=== PATIENT | female | born 1935 | race Caucasian/White ===

== ENCOUNTER 2022-10-29 11:59 | Inpatient (IN) | payer MEDICARE, BC ==
[~2022-10-29] VITALS: Ht 154.9 cm; Wt 83.0 kg
[2022-10-29 12:48] LABS: BASO % 0.1 % (0.0-2.0); EOS # 0.2 K/mm3 (0.0-0.7); GRAN # 7.5 K/mm3 (1.4-6.5); GRAN % 71.6 % (42.2-75.2); LYMPH # 1.8 K/mm3 (1.2-3.4); LYMPH % 17.4 % (20.0-51.0); MEAN CELL VOLUME 97 fl (80.0-100.0); MEAN CORPUSCULAR HGB CONC 33 g/dl (33.0-37.0); MEAN PLATELET VOLUME 9.3 fl (7.4-10.4); MONO # 0.9 K/mm3 (0.1-0.6); MONO % 8.5 % (1.7-9.3); PLATELET COUNT 204 K/mm3 (130-400); RED BLOOD COUNT 2.79 M/mm3 (4.10-5.30); REDCELL DISTRIBUTION WIDTH-CV 14.4 % (11.5-14.5)
[2022-10-29 13:04] LABS: ALANINE AMINOTRANSFERASE 17 U/L (0-55); ALBUMIN 2.3 gm/dL (3.4-4.8); ALKALINE PHOSPHATASE 138 U/L (40-150); ANION GAP 13 mmol/L (7-16); AST,SGOT 19 U/L (5-34); BILIRUBIN,TOTAL 0.3 mg/dL (0.2-1.2); BLOOD UREA NITROGEN 103 mg/dL (10-20); CALCIUM 9.3 mg/dL (8.4-10.2); CARBON DIOXIDE 15 mmol/L (23-31); CHLORIDE 108 mmol/L (98-107); GLUCOSE 210 mg/dL (70-99); POTASSIUM 4.4 mmol/L (3.5-4.5); SODIUM 136 mmol/L (136-145); TOTAL PROTEIN 5.8 gm/dL (6.2-8.1)
[2022-10-29 13:06] LABS: INR 1.1 (0.8-3.0); PROTHROMBIN TIME 12.3 SECONDS (9.7-12.8)
[2022-10-29 13:09] LABS: HEMATOCRIT 27.1 % (37.0-47.0); HEMOGLOBIN 8.9 g/dl (12.5-16.0); MEAN CORPUSCULAR HEMOGLOBIN 32 pg (27-31)
[2022-10-29 13:10] LABS: TROPONIN-I < 0.010 ng/mL (0.00-0.033)
[2022-10-29] MEDS ORDERED: TOPROL XL 50MG50 MG PO (13:38)
[2022-10-29] MEDS ORDERED: ZYLOPRIM 300MG300 MG PO (13:39)
[2022-10-29] MEDS ORDERED: PRILOSEC 20MG20 MG PO (13:39)
[2022-10-29] MEDS ORDERED: NEURONTIN300 MG/CAP (13:39)
[2022-10-29] MEDS ORDERED: COZAAR100 MG PO (13:39)
[2022-10-29] MEDS ORDERED: ASPIRIN E.C. 8181 MG PO (13:40)
[2022-10-29] MEDS ORDERED: NORVASC 5MG5 MG/TAB PO (13:40)
[2022-10-29] MEDS ORDERED: VITAMIN D 50,1.25 MG PO (13:41)
[2022-10-29] MEDS ORDERED: ALPHA LIPOIC A200 M2 PO (13:41)
[2022-10-29] MEDS ORDERED: TYLENOL 500MG500 MG PO (13:43)
[2022-10-29] MEDS ORDERED: FARXIGA10 PO (13:46)
[2022-10-29] MEDS ORDERED: LUTEIN20 M1 PO (13:46)
[2022-10-29] MEDS ORDERED: B-12 500 MCG PO (13:46)
[2022-10-29 17:43] VITALS: BP 117/39; PULSE 52; TEMP 97.6
--- NOTE | 2022-10-29 18:16 | NUR ---
Patient arrived to the unit by wheelchair, alert and oriented x 4, VSS, rates her pain in her hips, with movement rating 9/10 specially in the left side. Assessment intake completed.
[2022-10-29] MEDS ORDERED: VITAMIN C500 MG PO (18:29)
--- NOTE | 2022-10-29 19:00 | NUR ---
Patient eating dinner, fluids started per orders. Report given to night RN.
[2022-10-29 19:27] VITALS: BP 138/48; PULSE 65; TEMP 98.1; TEMP 981
[2022-10-29 21:00] VITALS: BP_SYST 138
--- NOTE | 2022-10-29 22:16 | NUR ---
SHIFT REPORT FROM MICHAEL PENDLETON. PATIENT IN BED ON ROOM ENTRY. ALERT AND ORIENTED. DAUGHTER AT BEDSIDE. C/O MODERATE PAIN 7/10 TO BACK AND HIPS AND STATES SHE HAS SORENESS IN HER CHEST. TYLENOL GIVEN. PATIENT REFUSED NORCO AT THIS TIME. HS MEDS PER EMAR. ABRASION TO HEAD CDI AND CLOSED WITH SKIN GLUE. IVF TO L AC IV. TELE APPLIED. DENIES ADDITIONAL NEEDS. CALL LIGHT IN REACH.
[2022-10-29 23:15] LABS: MUCOUS Present (NOT PRESENT); SQUAMOUS EPITHELIAL 0-2 /hpf (0-10); URINE BACTERIA None Seen /hpf (NONE SEEN); URINE WBC >50 /hpf (0-2)
[2022-10-29 23:18] LABS: URINE APPEARANCE Clear (CLEAR/HAZY); URINE BLOOD TRACE-INTACT (NEGATIVE); URINE COLOR Yellow (YELLOW); URINE GLUCOSE TRACE (NEGATIVE); URINE KETONE Negative (NEGATIVE); URINE NITRATE Negative (NEGATIVE); URINE PROTEIN(semi-quant) 3+ (NEGATIVE); URINE UROBILINOGEN 0.2 E.U/dL (0.2-1.0)
[2022-10-29 23:20] LABS: COLLECTION METHOD CLEAN CATCH
[2022-10-30] VITALS (14 sets, daily range): BP systolic 116–163; BP diastolic 38–60; PULSE 63–109; TEMP 97.5–98.5
[2022-10-30 07:31] LABS: BASO % 0.2 % (0.0-2.0); EOS # 0.3 K/mm3 (0.0-0.7); EOS % 3.3 % (0.0-4.0); GRAN # 5.9 K/mm3 (1.4-6.5); GRAN % 70.1 % (42.2-75.2); LYMPH # 1.4 K/mm3 (1.2-3.4); LYMPH % 16.5 % (20.0-51.0); MEAN CELL VOLUME 98 fl (80.0-100.0); MEAN CORPUSCULAR HGB CONC 33 g/dl (33.0-37.0); MEAN PLATELET VOLUME 9.5 fl (7.4-10.4); MONO # 0.8 K/mm3 (0.1-0.6); MONO % 9.4 % (1.7-9.3); PLATELET COUNT 204 K/mm3 (130-400); REDCELL DISTRIBUTION WIDTH-CV 14.2 % (11.5-14.5)
[2022-10-30 07:33] LABS: HEMATOCRIT 23.5 % (37.0-47.0); HEMOGLOBIN 7.7 g/dl (12.5-16.0); MEAN CORPUSCULAR HEMOGLOBIN 32 pg (27-31)
[2022-10-30 08:09] LABS: CALCIUM 8.9 mg/dL (8.4-10.2); CREATININE, serum 2.99 mg/dL (0.57-1.11); MAGNESIUM 1.7 mg/dL (1.6-2.6); PHOSPHOROUS 5.4 mg/dL (2.3-4.7); POTASSIUM 3.9 mmol/L (3.5-4.5)
[2022-10-30 08:14] LABS: TROPONIN-I 0.014 ng/mL (0.00-0.033)
--- NOTE | 2022-10-30 08:35 | NUR ---
HOSPITALIST TEAM ROUNDING, SEE ORDERS. DAUGHTER AT BEDSIDE.
--- NOTE | 2022-10-30 09:48 | NUR ---
Initial visit; Patient and her daughter, Bhavya thanked Stable Attendant for looking in on her and offering God's blessings and letting her know of the availability of Spiritual Care at our hospital. Patient was receptive to [facility] keeping her in her prayers.
--- NOTE | 2022-10-30 10:05 | NUR ---
TEAM AT BEDSIDE TO PLACE LOOP RECORDER, SEE ORDERS, AND WILL OBTAIN CONSENT. FAMILY AT BEDSIDE.
--- NOTE | 2022-10-30 12:20 | NUR ---
NURSING STAFF ASSISTING PATIENT TO BATHROOM. LITHOGRAPHIC PRINTING MACHINIST CALLED AND REPORTS A-FIB WITH HR OF 120-140'S. LITHOGRAPHIC PRINTING MACHINIST TO PRINT STRIPS. CALLED FOR STAT EKG. CARDIOLOGY ALREADY ON CASE.
--- NOTE | 2022-10-30 14:20 | NUR ---
supervisor whipped topping met with PAtient and family at bedside to conduct Care Managment Assessment and discuss discharge planning. Patient lives in [place], [place] by herself and is established with Dr. Simental for PCP. Patient has [facility] and [employer] for insurance. Patient states that her daughter, Linnette P: [phone] is her best familial point of contact. Patient denies the use of O2 and endorses the use of a 4WW prior to admission. Patient reports independency with ADL/IADLs prior to admission. Patient reports to have advanced directives being faxed from PCP office. Treatment team reccommends SNF on discharge. Patient and family report to want referrals to [facility] and [facility]. Discharge Plan: SNF/Swing Bed
--- NOTE | 2022-10-30 20:11 | NUR ---
pt resting in bed, was up recently to the restroom. Pt reports that her chest hurts a little when she takes a deep breath, but will then go away. Pt reports that she has been dealing with this all day. Tele called, heart rate 50s, pt resting comfortably in bed, reports feeling fine. Pt does have family in the room at this time. No needs, will continue to monitor
[2022-10-31] VITALS (10 sets, daily range): BP systolic 134–177; BP diastolic 39–56; PULSE 79–133; TEMP 98–99.2
--- NOTE | 2022-10-31 03:00 | NUR ---
Pt continues to get up every hour at least to void. Pt is weak and is not steady. She has pain to both hips and her back and is somewhat stiff when getting up. PRN pain medication given at this time
[2022-10-31 07:04] LABS: BASO % 0.2 % (0.0-2.0); EOS # 0.2 K/mm3 (0.0-0.7); EOS % 2.5 % (0.0-4.0); GRAN # 6.2 K/mm3 (1.4-6.5); LYMPH # 1.3 K/mm3 (1.2-3.4); LYMPH % 15.5 % (20.0-51.0); MEAN CELL VOLUME 96 fl (80.0-100.0); MEAN CORPUSCULAR HGB CONC 33 g/dl (33.0-37.0); MEAN PLATELET VOLUME 9.6 fl (7.4-10.4); MONO # 0.9 K/mm3 (0.1-0.6); MONO % 10.3 % (1.7-9.3); PLATELET COUNT 213 K/mm3 (130-400); REDCELL DISTRIBUTION WIDTH-CV 14.2 % (11.5-14.5); RETIC # 0.05 M/mm3 (0.02-0.16); RETIC % 1.8 % (0.5-3.52)
[2022-10-31 07:09] LABS: HEMATOCRIT 24.1 % (37.0-47.0); MEAN CORPUSCULAR HEMOGLOBIN 32 pg (27-31)
[2022-10-31 07:26] LABS: ALBUMIN 1.9 gm/dL (3.4-4.8); CALCIUM 9.2 mg/dL (8.4-10.2); CREATININE, serum 2.68 mg/dL (0.57-1.11); MAGNESIUM 1.7 mg/dL (1.6-2.6); PHOSPHOROUS 4.6 mg/dL (2.3-4.7)
[2022-10-31 07:29] LABS: IRON,SERUM < 5 ug/dL (50-175)
--- NOTE | 2022-10-31 07:33 | NUR ---
Bedside report received from the night nurse, KEERTHI Erickson.
--- NOTE | 2022-10-31 10:35 | NUR ---
Patient laying in bed alert and oriented. Loop recorder dressing dry and intact. Noted drainage from the IV site at left A/C. Amiodorane gtt infusing at 17.8. IV site edematous. Amiodorane gtt put on standby to start new IV site. Patient reports of generalized pain and requests for tylenol . Tylenol administered for pain level 7/10. Patient denies of shortness of air, dizziness or lightheadedness. See process intervention for notes.
--- NOTE | 2022-10-31 20:00 | NUR ---
PATIENT IS A&O, NOTED MILD OCCATIONAL FORGETFULNESS. NOTED IRREGULAR HR AT 118 ON TELE. AMIO GTT INFUSING VIA PUMP INTO LEFT FORARM IV, SEE MAR. ALL OTHER VSS. C/O ACHES IN BILATERAL HIPS & LOW BACK. GAVE PRN NORCO WITH HS MEDS PER PATIENT & FAMILY REQUEST. PATIENT'S GRAND-DAUGHTER AT BEDSIDE AND CLEARED TO STAY THE NIGHT. HEAD TO TOE ASSESSMENT COMPLETE. HS BS WAS 214, SSI GIVEN. PATIENT ASSISTED TO BATHROOM AND THEN POSITIONED TO COMFORT UP IN BED. NO OTHER NEEDS AT THIS TIME. CALL LIGHT IN REACH. BED ALARM ON.
[2022-11-01] VITALS (11 sets, daily range): BP systolic 134–164; BP diastolic 52–80; PULSE 102–123; TEMP 97.6–98.4
--- NOTE | 2022-11-01 07:43 | NUR ---
Received shift report from the night nurseMary RN.
[2022-11-01 07:46] LABS: CALCIUM 9.5 mg/dL (8.4-10.2); CREATININE, serum 2.36 mg/dL (0.57-1.11); MAGNESIUM 1.6 mg/dL (1.6-2.6)
[2022-11-01 07:56] LABS: BASO % 0.4 % (0.0-2.0); EOS # 0.2 K/mm3 (0.0-0.7); EOS % 2.3 % (0.0-4.0); GRAN # 7.5 K/mm3 (1.4-6.5); LYMPH % 10.3 % (20.0-51.0); MEAN CELL VOLUME 97 fl (80.0-100.0); MEAN CORPUSCULAR HGB CONC 33 g/dl (33.0-37.0); MEAN PLATELET VOLUME 9.5 fl (7.4-10.4); MONO # 0.9 K/mm3 (0.1-0.6); MONO % 9.6 % (1.7-9.3); PLATELET COUNT 253 K/mm3 (130-400); REDCELL DISTRIBUTION WIDTH-CV 14.1 % (11.5-14.5)
[2022-11-01 07:59] LABS: HEMATOCRIT 26.1 % (37.0-47.0); HEMOGLOBIN 8.5 g/dl (12.5-16.0); MEAN CORPUSCULAR HEMOGLOBIN 31 pg (27-31)
--- NOTE | 2022-11-01 10:21 | NUR ---
Patient sitting up in a recliner, states that she slept well last night. Loop recorder on chest intact. Tele monitor in place. Patient denies of pain , shortness of breath or dizziness. Left upper arm slightly swollen and will apply warm blanket to the affected area. Family at the bedside. Call helm within reach.
--- NOTE | 2022-11-01 17:54 | NUR ---
IV infiltrated on left upper arm, site red and swollen. INT discontinued, and applied warm blanket to area and elevated arm on a pillow. New IV site started on the right forearm.
--- NOTE | 2022-11-01 22:32 | NUR ---
PT. STRUGGLING WITH THE NEED TO FREQUENTLY URINATE, PT. THOUGHT IT HAD BEEN AN HOUR SINCE SHE LAST WENT, DAUGHTER STATED THAT IT HAD ONLY BEEN 30-45 MIN, PT. C/O PAIN IN HER L) ARM, PT.'S ARM IS RED AND SWOLLEN, SHE HAD TWO PREVIOUS IV'S INFILTRATE IN THAT ARM, ARM IS FIRN AND WARM TO THE TOUCH, PLACED GAUZE AND TAPE OVER THE INSERTION SITE, THE HOLE APPEARED LARGE, THERE IS A WHITE SPOT AT THE CENTER OF THE INSERTION SITE WELL, PT. THOUGHT THAT IT LOOKED LIKE PUS, BUT WHEN I ASSESSED IT, THE SITE WAS DRY, DOES NOT LOOK LIKE PUS TO ME, WILL CONTINUE TO MONITOR TO SEE IF REDNESS OR SWELLING HAS SPREAD.
[2022-11-02] VITALS (17 sets, daily range): BP systolic 80–178; BP diastolic 45–75; PULSE 75–119; TEMP 97.8–98.3
[2022-11-02 06:21] LABS: BASO % 0.2 % (0.0-2.0); EOS # 0.3 K/mm3 (0.0-0.7); EOS % 3.1 % (0.0-4.0); GRAN # 7.3 K/mm3 (1.4-6.5); GRAN % 75.1 % (42.2-75.2); LYMPH # 1.2 K/mm3 (1.2-3.4); LYMPH % 12.5 % (20.0-51.0); MEAN CELL VOLUME 98 fl (80.0-100.0); MEAN CORPUSCULAR HGB CONC 33 g/dl (33.0-37.0); MEAN PLATELET VOLUME 9.3 fl (7.4-10.4); MONO # 0.8 K/mm3 (0.1-0.6); MONO % 8.6 % (1.7-9.3); PLATELET COUNT 269 K/mm3 (130-400); RED BLOOD COUNT 2.79 M/mm3 (4.10-5.30); REDCELL DISTRIBUTION WIDTH-CV 14.1 % (11.5-14.5)
[2022-11-02 06:26] LABS: HEMATOCRIT 27.2 % (37.0-47.0); HEMOGLOBIN 8.9 g/dl (12.5-16.0); MEAN CORPUSCULAR HEMOGLOBIN 32 pg (27-31)
[2022-11-02 06:52] LABS: CREATININE, serum 1.92 mg/dL (0.57-1.11); MAGNESIUM 1.8 mg/dL (1.6-2.6); PHOSPHOROUS 3.4 mg/dL (2.3-4.7); POTASSIUM 4.3 mmol/L (3.5-4.5)
--- NOTE | 2022-11-02 07:43 | NUR ---
Received shift report from the night nurse, KEERTHI Denson.
[2022-11-02 10:40] LABS: CREATININE, serum 1.87 mg/dL (0.57-1.11); POTASSIUM 4.5 mmol/L (3.5-4.5)
[2022-11-02 10:51] LABS: INR 1.2 (0.8-3.0); PROTHROMBIN TIME 13.2 SECONDS (9.7-12.8)
--- NOTE | 2022-11-02 10:52 | NUR ---
Patient resting in bed, alert and oriented . Amio gtts infusing at 7.3ml/hr. Patient has bruise on right leg from previou fall. Patient reports pain at right shoulder but no meds needed at this time. Family at the bedside.
--- NOTE | 2022-11-02 14:11 | NUR ---
Patient off the unit for via bed at 1410 for cardioversion.
--- NOTE | 2022-11-02 14:31 | NUR ---
The PA notified SW that the patient may be able to discharge in the next 24-48 hours. Solange, at [facility], reports that they can clinically consider the patient, but do not have a bed available at this time. If something comes available, they will let us know. Malissa, at [facility], requested updates. The patient's daughter, Bhavya, arrived to the hospital and requested an update. SAUD updated her on the above. Bhavya states that her family is now really wanting [facility], due to the patient not doctoring in [facility]. SW informed her how [facility] does not have a bed available an informed her of the other local options. Bhavya states that she needs to talk to her family about this, but she is open to SW sending a referral to [facility]. SAUD contacted and faxed a referral to Kehinde at [facility]. Awaiting screens. SAUD faxed updates to [facility] and [facility].
--- NOTE | 2022-11-02 15:10 | NUR ---
Patient returned to the unit from cardioversion, Patient in NSR showing on the tele monitor. VSS. Amio gtt discontined per orders and po adminitered. Started patient on heparin gtt.
--- NOTE | 2022-11-02 22:08 | NUR ---
PT. FEELS SOB AND HOT SHE STATED, TRANG THE AIDE TOOK A SET OF VITALS ON THE PT., HER BP IS A LITTLE ELEVATED AT 175 SYSTOLIC, O2% WAS 91 ON RA, TRANG ASSISTED ME IN GETTING THE PATIENT PULLED UP IN BED, AND RAISED THE HEAD OF HER BED WELL, TOOK THE BLANKET OFF AND JUST LEFT HER WITH THE SHEET, WILL GIVE THE PT. A PRN DOSE OF HYDRALAZINE FOR HER BP, LUNG SNDS ARE CLEAR IN ALL ARELLANO, WILL CONTINUE TO MONITOR.
[2022-11-03] VITALS (11 sets, daily range): BP systolic 140–178; BP diastolic 42–55; PULSE 67–76; TEMP 97.5–98.9
--- NOTE | 2022-11-03 00:32 | NUR ---
11/02 2348 HEP. XA CAME BACK AT 0.68, NO RATE CHANGE IS NEEDED AT THIS TIME, WILL REORDER THE XA LEVEL TO BE DRAWN IN 6 HOURS, AND WILL CONTINUE TO MONITOR.
--- NOTE | 2022-11-03 00:33 | NUR ---
0014 GAVE DOSE OF TYLENOL A BIT EARLY, ALONG WITH MELATIONIN AND HYDROCODNE THE PT. IS IN PAIN, AND HAS BEEN HAVING EXTREME DIFFICULTY IN GETTING ANY SLEEP FOR THE LAST FEW DAYS, AM HOPING THAT THE COMBINATION WILL GIVE HERENOUGH RELIEF THAT SHE CAN RELAX AND FINALLY SLEEP.
[2022-11-03 14:05] LABS: ALBUMIN 1.9 gm/dL (3.4-4.8); CALCIUM 9.6 mg/dL (8.4-10.2); CREATININE, serum 1.68 mg/dL (0.57-1.11); MAGNESIUM 1.8 mg/dL (1.6-2.6); PHOSPHOROUS 3.7 mg/dL (2.3-4.7); POTASSIUM 4.4 mmol/L (3.5-4.5)
--- NOTE | 2022-11-03 14:18 | NUR ---
PATIENT ALERT AND ORIENTED X4. VSS. PATIENT HERE FOR AFIB/ERNIE/FALLS. PATIENT DENIES ANY PAIN AT THIS TIME. HEPARIN GTT RUNNING AT 15ML/HOUR IN IV TO RIGHT UPPER ARM. LUE WITH EDEMA/RED/WARM TO TOUCH FROM OLD IV INFILTRATION SITE. RUE WITH EDEMA, RED, WARM TO TOUCH FROM OLD IV INFILTRATION SITE. BOTH EXTREMITIES ELEVATED WITH WARM COMPRESSES APPLIED INTERMITTENTLY. PATIENT VOIDING, ON ROOM AIR, AND NO FURTHER COMPLAINTS. CALL LIGHT IN REACH.
[2022-11-03 15:34] LABS: BASO % 0.4 % (0.0-2.0); EOS # 0.4 K/mm3 (0.0-0.7); EOS % 3.7 % (0.0-4.0); GRAN # 8.3 K/mm3 (1.4-6.5); GRAN % 73.5 % (42.2-75.2); LYMPH # 1.6 K/mm3 (1.2-3.4); LYMPH % 14.1 % (20.0-51.0); MEAN CELL VOLUME 99 fl (80.0-100.0); MEAN CORPUSCULAR HGB CONC 33 g/dl (33.0-37.0); MEAN PLATELET VOLUME 9.5 fl (7.4-10.4); MONO # 0.8 K/mm3 (0.1-0.6); MONO % 7.5 % (1.7-9.3); PLATELET COUNT 311 K/mm3 (130-400); RED BLOOD COUNT 2.55 M/mm3 (4.10-5.30); REDCELL DISTRIBUTION WIDTH-CV 14.3 % (11.5-14.5)
[2022-11-03 15:35] LABS: HEMATOCRIT 25.2 % (37.0-47.0); HEMOGLOBIN 8.2 g/dl (12.5-16.0); MEAN CORPUSCULAR HEMOGLOBIN 32 pg (27-31)
[2022-11-03 15:44] LABS: INR 1.2 (0.8-3.0); PROTHROMBIN TIME 13.5 SECONDS (9.7-12.8)
--- NOTE | 2022-11-03 17:28 | NUR ---
FLORAL DEPARTMENT SPECIALIST ATTEMPTED TO DRAW A TYPE AND SCREEN FOR BLOOD BANK. HOSPITALIST INFORMED. TYPE AND SCREEN RETIMED FOR TOMORROW MORNING.
[2022-11-04 00:27] VITALS: BP_SYST 167
[2022-11-04 04:05] VITALS: BP 148/45; PULSE 69; TEMP 97.4
[2022-11-04 04:42] VITALS: BP_SYST 148
--- NOTE | 2022-11-04 04:49 | NUR ---
11/03 2018 PT. APPEARS EMOTIONALLY DISTRESSED, STATED THAT IT HAD BEEN AN OVERWHELMING DAY, AND THAT THEY GAVE HER IV LASIX, THAT SHE NORMALLY HAS TO GO FREQUENTLY ANYWAY, AND THIS WAS MAKING HER HAVE TO GO EVERY 15 MIN, I ASKED IF SHE WOULD LIKE THAT WE COULD PUT THE COMMODE BY THE SIDE OF HER BED, SO THAT SHE WOULDN'T BECOME EXHAUSTED BY HAVING TO WALK ALL THE WAY INTO THE BATHROOM SO FREQUENTLY UNTIL THE LASIX HAS FINISHED WORKING ITS WAY THROUGH HER SYSTEM, PT. STATED THAT WOULD BE WONDERFUL, PT. ASKED ABOUT HER LEFT ARM AND IF IT WAS LOOKING ANY BETTER, PT.'S ARM IS STILL RED, SWOLLEN, FIRM TO THE TOUCH FROM WHERE TWO SEPARATE IV'S INFILTRATED WHILE INFUSING AN AMIODARONE DRIP, EXPLAINED THAT THERE ARE CERTAIN MEDS THAT REQUIRE AN ANTIDOTE TO BE GIVEN IN SHOTS AROUND THE AREA OF INFILTRATION IN ORDER TO COUNTER THE MEDS EFFECT ON THE TISSUE, BUT THAT THE NURSE WHO HAD BEEN TAKING CARE OF HER AT THE TIME IT HAPPENED WAS UNAWARE OF THAT FACT, THAT THE ANTIDOTE CAN ONLY BE DONE WITHIN A CERTAIN TIME FRAME, AND THAT IT HAS BEEN TOO LONG SINCE IT HAPPENED, A RESULT IT MIGHT TAKE LONGER TO HEAL, PT. STATED UNDERSTANDING, WILL CONTINUE TO MONITOR.
[2022-11-04 07:03] VITALS: BP 170/56; PULSE 74; TEMP 97.8
[2022-11-04] MEDS ORDERED: FERRO-TIME325 MG PO (11:21)
[2022-11-04] MEDS ORDERED: LOVENOX 8080 MG/0.8 SQ (11:22)
[2022-11-04] MEDS ORDERED: COUMADIN 5MG5 MG/TAB PO (11:23)
[2022-11-04] MEDS ORDERED: TYLENOL 325MG325 MG PO (11:23)
[2022-11-04] MEDS ORDERED: SODIUM BICARBO650 MG PO (11:23)
[2022-11-04 11:24] LABS: INR 1.5 (0.8-3.0); PROTHROMBIN TIME 16.8 SECONDS (9.7-12.8)
[2022-11-04] MEDS ORDERED: PACERONE200 MG PO (11:27)
[2022-11-04] MEDS ORDERED: APRESOLINE 10MG10 MG PO (11:27)
[2022-11-04] MEDS ORDERED: TOPROL XL 25MG25 MG PO (11:27)
[2022-11-04] MEDS ORDERED: GLUCAGEN1 MG IM (11:29)
[2022-11-04] MEDS ORDERED: MAG-OX 400400 MG/TAB PO (11:29)
[2022-11-04] MEDS ORDERED: NOVLOG SQ (11:29)
--- NOTE | 2022-11-04 11:34 | NUR ---
*late entry, 11/03* The hospitalist team notified SW that the patient may be able to discharge on Wednesday, 11/04. SW notified and faxed updates to [facility] and [facility]. Solange, at [facility], reports that they may have a bed opening up now. Kehinde, at [facility], reports that they are able to accept the patient. SW met with the patient and her son, Angel, and updated them on the above. The patient and her son are agreeable to going to [facility], if [facility] does not have a bed open up.
--- NOTE | 2022-11-04 11:36 | NUR ---
The clinical team is ready to discharge the patient. SAUD notified Solange at [facility]. Solange reports that they do have a bed available today and can accept the patient. SAUD updated the patient, her daughter, and son. The patient and her family confirm they would like to pursue with going to [facility]. SAUD presented and read the IM form outloud to the patient. The patient verbalized understanding and agreement to discharge today. She signed the form and SAUD provided her with a copy. The patient is to discharge today, 11/04, to [facility] for a skilled stay. Transportation scheduled around 1430, via [facility]. No additional needs at this time.
--- NOTE | 2022-11-04 11:40 | NUR ---
PATIENT ALERT AND ORIENTED X4. VSS. PATIENT HERE FOR AFIB/ERNIE/FALLS/LOOP RECORDER. IV TO RIGHT UPPER ARM, FLUSHES WELL. BUE SWELLING ON EACH ARM DUE TO OLD IV INFILTRATION SITES. PATIENT CURRENTLY RECEIVING ONE UNIT OF BLOOD. PATIENT TOLERATING TRANSFUSION. PATIENT SET TO DISCHARGE TO [facility] AT 1430.
[2022-11-04 11:55] LABS: BASO % 0.3 % (0.0-2.0); EOS # 0.4 K/mm3 (0.0-0.7); EOS % 4.7 % (0.0-4.0); GRAN # 6.4 K/mm3 (1.4-6.5); GRAN % 69.2 % (42.2-75.2); LYMPH # 1.7 K/mm3 (1.2-3.4); LYMPH % 18.4 % (20.0-51.0); MEAN CELL VOLUME 97 fl (80.0-100.0); MEAN CORPUSCULAR HGB CONC 33 g/dl (33.0-37.0); MEAN PLATELET VOLUME 9.1 fl (7.4-10.4); MONO # 0.6 K/mm3 (0.1-0.6); MONO % 6.6 % (1.7-9.3); PLATELET COUNT 342 K/mm3 (130-400); RED BLOOD COUNT 2.71 M/mm3 (4.10-5.30); REDCELL DISTRIBUTION WIDTH-CV 14.2 % (11.5-14.5)
[2022-11-04 11:57] LABS: HEMATOCRIT 26.2 % (37.0-47.0); HEMOGLOBIN 8.6 g/dl (12.5-16.0); MEAN CORPUSCULAR HEMOGLOBIN 32 pg (27-31)
[2022-11-04 12:00] VITALS: BP 147/50; PULSE 68; TEMP 97.6
[2022-11-04 12:31] LABS: CREATININE, serum 1.65 mg/dL (0.57-1.11)
[2022-11-04 12:32] LABS: CALCIUM 9.6 mg/dL (8.4-10.2); POTASSIUM 4.1 mmol/L (3.5-4.5)
[2022-11-04 13:00] VITALS: BP_SYST 147
--- NOTE | 2022-11-04 14:06 | NUR ---
ONE UNIT OF PRBC TRANSFUSED. DOCUMENTATION ON PAPER AND IN CHART. PATIENT TOLERATED WELL.
--- NOTE | 2022-11-04 15:24 | NUR ---
REPORT CALLED TO [facility]. PATIENT AND BELONGINGS ESCORTED OUT WITH TRANSPORTER.
== END 2022-11-04 15:25 | DRG 261 ==
LOC: COL.ER 11:59 → SURG 15:42
PROVIDERS: Emergency Medicine; Internal Medicine; Internal Medicine Nephrology; Physician Assistant; ADMIT Internal Medicine
PROC: 0JH632Z Insertion of Monitoring Device into Chest Subcutaneous Tissue and Fascia, Percutaneous Approach (ICD-10-PCS; principal; 2022-10-30)
PROC: 5A2204Z Restoration of Cardiac Rhythm, Single (ICD-10-PCS; 2022-11-02)
DX: I48.0 Paroxysmal atrial fibrillation (principal); E87.20 Acidosis, unspecified; N17.9 Acute kidney failure, unspecified; N39.0 Urinary tract infection, site not specified; T80.818A Extravasation of other vesicant agent, initial encounter; I95.9 Hypotension, unspecified; I12.9 Hypertensive chronic kidney disease with stage 1 through stage 4 chronic kidney disease, or unspecified chronic kidney disease; Z66 Do not resuscitate; E11.22 Type 2 diabetes mellitus with diabetic chronic kidney disease; D63.1 Anemia in chronic kidney disease; E83.52 Hypercalcemia; M25.552 Pain in left hip; R29.810 Facial weakness; K21.9 Gastro-esophageal reflux disease without esophagitis; M10.9 Gout, unspecified; R29.6 Repeated falls; S30.0XXA Contusion of lower back and pelvis, initial encounter; E11.42 Type 2 diabetes mellitus with diabetic polyneuropathy; N18.32 Chronic kidney disease, stage 3b; E03.9 Hypothyroidism, unspecified; Z20.822 Contact with and (suspected) exposure to COVID-19; W18.39XA Other fall on same level, initial encounter; Z79.01 Long term (current) use of anticoagulants; Y93.89 Activity, other specified; Y92.89 Other specified places as the place of occurrence of the external cause; Z88.8 Allergy status to other drugs, medicaments and biological substances; Z79.82 Long term (current) use of aspirin; Z79.899 Other long term (current) drug therapy; Z23 Encounter for immunization
CPT/HCPCS: A9284; C1764; J0282; J0696; J1644; J1650; J1815; J1940; J2704; J7030; J7060; J7120; P9016